=== PATIENT | male | born 1995 | race African-American/Black ===

== ENCOUNTER 2021-03-06 20:15 | Emergency (ER) | payer OTHER ==
[~2021-03-06] VITALS: Ht 180.3 cm; Wt 80.0 kg
[2021-03-06 20:25] VITALS: BP 109/76
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
== END 2021-03-06 21:16 | disposition home or self-care (01) ==
LOC: ER 20:15
DX: S00.03XA Contusion of scalp, initial encounter (principal); Y08.89XA Assault by other specified means, initial encounter; Y93.89 Activity, other specified; Y92.89 Other specified places as the place of occurrence of the external cause; Y99.8 Other external cause status
CPT/HCPCS: 99282